=== PATIENT | female | born 2005 | race Two or more races ===

== ENCOUNTER 2025-02-11 08:19 | Emergency (ER) | payer OTHER, MEDICARE ==
[~2025-02-11] VITALS: Ht 154.9 cm; Wt 102.0 kg
[2025-02-11] MEDS ORDERED: AVIANE1 EACH PO (08:31)
[2025-02-11 08:38] LABS: BASOPHILS 0.4 % (0.1-1.2); EOSINOPHILS 0.8 % (0.7-5.8); LYMPHOCYTES 23.1 % (19.3-51.7); MCH 28.8 PG (25.6-32.2); MCHC 34.9 g/dL (32.2-35.5); MCV 82.7 fL (79.4-94.8); MONOCYTES 10.5 % (4.7-12.5); NEUTROPHILS 64.9 % (34.0-71.1); RBC 4.51 M/uL (3.93-5.22)
[2025-02-11 08:44] LABS: INR 1.06 (0.80-1.30); PROTIME 13.1 Sec (11.2-14.2)
[2025-02-11] MEDS ORDERED: ASPIRIN 81 MG CHEW PO ONE (08:45)
[2025-02-11 08:51] LABS: ALT (SGPT) 71.0 U/L (14-59); AST (SGOT) 66.0 U/L (15-37); GLOMERULAR FILTRATION RATE,EST 115.0 mL/min (>60); PROTEIN, TOTAL 7.5 g/dL (6.4-8.2); UREA NITROGEN 9.0 mg/dL (7-18)
[2025-02-11 09:41] LABS: AMPHETAMINES, URINE NEGATIVE (NEGATIVE); BARBITURATES, URINE NEGATIVE (NEGATIVE); BENZODIAZEPINE, URINE NEGATIVE (NEGATIVE); CANNABINOID, URINE NEGATIVE (NEGATIVE); COCAINE, URINE NEGATIVE (NEGATIVE); ECSTASY, URINE NEGATIVE (NEGATIVE); FENTANYL, URINE NEGATIVE (NEGATIVE); METHADONE, URINE NEGATIVE (NEGATIVE); OPIATES, URINE NEGATIVE (NEGATIVE); OXYCODONE, URINE NEGATIVE (NEGATIVE); PHENCYCLIDINE, URINE NEGATIVE (NEGATIVE)
[2025-02-11] MEDS ORDERED: HEPARIN SOD,PORK IN 0.45% NACL 500 ML IV SCH (12:00)
[2025-02-11 12:27] VITALS: BP 116/67
--- NOTE | 2025-02-11 19:52 | EKG ---
[facility] [address] [facility] [place], [place] [address] Signed Normal sinus rhythm with sinus arrhythmia Low voltage QRS Borderline ECG Confirmed by John Sánchez DO ([id number]) on 02/11/2025 7:52:26 PM Electronically Signed By: JOHN SÁNCHEZ DO 02/11/251951 PATIENT NAME: KEMAR HAUSER ILAN Electrocardiogram DATE OF : [birth year] PHYSICIAN: JOHN SÁNCHEZ DO REPORT #: [id number] REPORT IS CONFIDENTIAL AND NOT TO BE RELEASED WITHOUT AUTHORIZATION
--- NOTE | 2025-02-11 19:52 | EKG ---
[facility] [address] [facility] [place], [place] [address] Signed Age and gender specific ECG analysis Normal sinus rhythm with sinus arrhythmia Low voltage QRS ST elevation, consider inferior injury or acute infarct ACUTE VA / STEMI Abnormal ECG No previous ECGs available Confirmed by John Sánchez DO ([id number]) on 02/11/2025 7:52:22 PM Electronically Signed By: JOHN SÁNCHEZ DO 02/11/251951 PATIENT NAME: KEMAR HAUSER ILAN Electrocardiogram DATE OF : [birth year] PHYSICIAN: JOHN SÁNCHEZ DO REPORT #: [id number] REPORT IS CONFIDENTIAL AND NOT TO BE RELEASED WITHOUT AUTHORIZATION
== END 2025-02-11 12:09 | disposition short-term general hospital (02) ==
LOC: ED 08:19
PROVIDERS: Emergency Medicine
DX: I21.4 Non-ST elevation (NSTEMI) myocardial infarction (principal); Z88.0 Allergy status to penicillin; Z79.3 Long term (current) use of hormonal contraceptives
CPT/HCPCS: 36415; 71045; 71275; 74174; 80053; 80307; 84484; 84703; 85025; 85379; 85610; 93005; 93010; 96374; 99285-25; A9270; J1644; Q9967